=== PATIENT | male | born 1970 | race African-American/Black ===

== ENCOUNTER 2017-08-02 10:13 | Emergency (ER) | payer SELFPAY ==
[~2017-08-02] VITALS: Ht 190.5 cm; Wt 95.5 kg
[2017-08-02 10:14] VITALS: BP 133/88; PULSE 74; RESP 16; TEMP 99.2; O2SAT 98
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
== END 2017-08-02 11:18 | disposition home or self-care (01) ==
LOC: NEPK 10:13
DX: Z48.02 Encounter for removal of sutures (principal)
CPT/HCPCS: 99281